=== PATIENT | female | born 1970 | race Caucasian/White ===

== ENCOUNTER 2018-10-18 01:45 | Emergency (ER) | payer OTHER, SELFPAY ==
[2018-10-18] VITALS (16 sets, daily range): BP systolic 112–155; BP diastolic 40–82; PULSE 68–97; RESP 12–18; TEMP 36.8; O2SAT 96–100; BMI 23.5
--- NOTE | 2018-10-18 02:02 | CT_ITS ---
STUDY: CT BRAIN WITHOUT CONTRAST REASON FOR EXAM: Female, 48 years old. Psychiatric clearance. Patient has auditory hallucinations. RADIATION DOSAGE (If Supplied By Facility): CTDIvol = ( 44.99 ) mGy, DLP = ( 1015.94 ) mGycm TECHNIQUE: Transaxial CT imaging of the brain was performed without administration of intravenous contrast material. Multiplanar reformations are submitted for interpretation. Individualized dose optimization techniques were used for this CT. COMPARISON: None. FINDINGS: Normal soft tissue structures. Normal calvarium. Normal size ventricles and extra-axial spaces for the patient's age. Normal white matter tracts of the cerebral hemispheres. Normal basal ganglia and thalami. Normal brainstem. Normal cerebellum. There is no intracranial hemorrhage. There are no findings of an acute ischemic infarction. Normal visualized paranasal sinuses. CT/Brain/Head without Contrast IMPRESSION: No CT evidence of acute intracranial hemorrhage. Electronically Signed: Ana Wayne MD at 2:41 EST , Service support ,
--- NOTE | 2018-10-18 02:02 | EKG12_ITS ---
Test Reason : MENTAL HEALTH Blood Pressure : / mmHG Vent. Rate : 079 BPM Atrial Rate : 079 BPM P-R Int : 136 ms QRS Dur : 078 ms QT Int : 372 ms P-R-T Axes : -08 036 017 degrees QTc Int : 426 ms Normal sinus rhythm Normal ECG Confirmed by ARLETH BRANDON, WILLA ([id number]), offline editor BRIDGETT MCCARTY ([id number]) on 10/20/2018 1:39:38 PM Referred By: RUSSELL Confirmed By:WILLA REINOSO MD
[2018-10-18 02:22] LABS: Absolute Neutrophil Count 4.2 X10^3/uL (2.0-7.7); Basophil# 0.01 X10^3/uL; Basophil% 0.2 % (0-1); Eosinophil# 0.07 X10^3/uL; Eosinophils% 1.3 % (0-5); Hematocrit 41.2 % (37-47); Hemoglobin 13.9 g/dl (12.0-15.0); Lymphocyte % 16.2 % (19-41); Mean Corp Hgb Conc 33.7 g/gl (32-36); Mean Corpuscular Hgb 29.9 pg (27.0-32.0); Mean Corpuscular Volume 88.6 fL (81-99); Mean Platelet Vol. 8.7 fl (6.2-12.0); Monocyte% 7.2 % (0-10); Neutrophil # 4.15 X10^3/uL (2.7-7.7); Neutrophil % 74.9 % (47-70); Platelet Count 243 K/mm3 (150-450); RBC Distribution Width CV 12.5 % (11.6-14.6); Red Blood Count 4.65 M/mm3 (4.2-5.4); White Blood Count 5.5 K/mm3 (4.4-11.0)
[2018-10-18 02:25] LABS: POSITIVE COUNT NO; POSITIVE DIFFERENTIAL NO; POSITIVE MORPHOLOGY NO
[2018-10-18 02:42] LABS: Alcohol, Blood (Medical)-Serum < 3.0 mg/dL
[2018-10-18 02:49] LABS: ALB/GLOB Ratio 1.3 RATIO (0.9-2.4); AST(SGOT) 17 U/L (15-37); Alanine Aminotransfer ALT/SGPT 24 U/L (13-56); Albumin, Serum 4.2 g/dL (3.2-5.0); Alkaline Phosphatase 59 U/L (45-117); Anion Gap 12 (5-15); BUN 25 mg/dL (7-18); BUN/Creat Ratio 32.9 RATIO (10-20); Calcium,Total 8.4 mg/dL (8.5-10.1); Chloride 103 mmol/L (98-107); Creatinine, Serum 0.76 mg/dL (0.55-1.02); EST Glomerular Filtration Rate 87 mL/min (>60); Est Glom Filt Rate - Afr Amer 106 mL/min (>60); Estimated Creatinine Clearance 83.23 ml/min; Globulin 3.2 g/dL (2.2-4.2); Glucose 118 mg/dL (74-106); Potassium 3.4 mmol/L (3.5-5.1); Pregnancy, Serum, hCG Quali. NEGATIVE Negative (0-9 Nonpreg); Protein, Total 7.4 g/dL (6.4-8.2); Sodium Level 138 mmol/L (136-145); Thyroid Stim Hormone (TSH) 1.74 uIU/mL (0.358-3.74)
[2018-10-18 03:10] LABS: Bacteria 0 SEEN /hpf (None Seen); Mucous, Urine 0 SEEN /hpf (<or=2+)
[2018-10-18 03:50] LABS: Color, Urine Red (Yellow); Glucose, Dipstick Normal (Normal); Ketone-Dipstick 15 mg/dl (Negative); Leukocyte Esterase-Dipstick Negative /ul (Negative); Nitrite-Dipstick Negative (Negative); Occult Blood-Urine 150 /ul (Negative); Protein-Dipstick 500 mg/dl (Negative); Specific Gravity, Urine 1.025 (1.002-1.030); Urine Bilirubin Dipstick Negative (Negative); Urine Clarity Cloudy (Clear); Urine Urobilinogen Normal (Normal); Urine pH 6.5 (5.0 - 8.0)
[2018-10-18 03:53] LABS: Red Blood Cells-Urine > 100 SEEN /hpf (0-5); Squamous Epithelial Cells - UA 50-100 SEEN /hpf (5-10); White Blood Cells >100 SEEN /hpf (0-5)
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
[2018-10-18 04:20] LABS: Amphetamine Urine VISTA NEGATIVE (<1000 ng/mL); Barbiturate Urine VISTA NEGATIVE (< 200 ng/mL); Benzodiazepine Urine VISTA NEGATIVE (< 200 ng/mL); Cocaine Urine VISTA NEGATIVE (< 300 ng/mL); Ecstacy Urine VISTA NEGATIVE (< 500 ng/mL); Methadone Urine VISTA NEGATIVE (< 300 ng/mL); PCP Urine VISTA NEGATIVE (< 25 ng/mL); THC Urine VISTA NEGATIVE (< 50 ng/mL); Vista UDS pH Range 6
[2018-10-18 04:40] LABS: Mucous, Urine 0 SEEN /hpf (<or=2+)
[2018-10-18 04:42] LABS: Color, Urine Yellow (Yellow); Glucose, Dipstick Normal (Normal); Leukocyte Esterase-Dipstick 25 /ul (Negative); Nitrite-Dipstick Negative (Negative); Occult Blood-Urine 250 /ul (Negative); Protein-Dipstick 30 mg/dl (Negative); Urine Bilirubin Dipstick Negative (Negative); Urine Clarity Sl. Cloudy (Clear); Urine Urobilinogen Normal (Normal)
[2018-10-18 04:48] LABS: Ketone-Dipstick 150 mg/dl (Negative)
[2018-10-18 04:50] LABS: Bacteria RARE /hpf (None Seen); Red Blood Cells-Urine 5-10 SEEN /hpf (0-5); Squamous Epithelial Cells - UA 0-5 SEEN /hpf (5-10); White Blood Cells 0-5 SEEN /hpf (0-5)
--- NOTE | 2018-10-18 05:10 | ED.RN ---
DR WELLS AWARE OF KETONES 150.
--- NOTE | 2018-10-18 05:55 | ED.RN ---
ENCOUNTERS WITH THIS PT CONSIST OF THE PT OBEYING REQUEST,BUT DOES NOT TALK.PT WILL LOOK AT THIS NURSE.PARENTS REMAIN AT THE BEDSIDE.
--- NOTE | 2018-10-18 09:18 | NURSING ---
MOON, CRISIS, HERE
[2018-10-19 01:26] VITALS: BP 127/71; PULSE 72; RESP 18
--- NOTE | 2018-10-19 01:27 | ED.RN ---
REPORT CALLED AND GIVEN TO LYNDSEY AT [facility].
[2018-10-19 02:00] VITALS: RESP 18
[2018-10-19 03:35] VITALS: BP 115/71; PULSE 67; O2SAT 96
[2018-10-19 04:00] VITALS: RESP 14
[2018-10-19 05:00] VITALS: RESP 16
[2018-10-19 06:09] VITALS: BP 115/72; PULSE 68; RESP 16; O2SAT 97
== END 2018-10-19 08:08 ==
PROVIDERS: Emergency Provider Emergency Medicine; Family Provider Family Medicine; PCP Family Medicine
DX: R44.0 Auditory hallucinations (principal)
CPT/HCPCS: 36415; 70450; 80053; 80307; 80320; 81001; 84443; 84703; 85025; 93005; 99284; G0480